=== PATIENT | male | born 1960 | race Two or more races ===

== ENCOUNTER 2021-01-23 01:26 | Emergency (ER) | payer BC, MEDICAID ==
[~2021-01-23] VITALS: Ht 180.3 cm; Wt 95.3 kg
[~2021-01-23 01:26] MED LIST: SULF400T11
[2021-01-23 01:27] VITALS: BP 121/69
[2021-01-23] MEDS ORDERED: cefTRIAXone SOD 1,000 MG VL IM ONE (02:30)
[2021-01-23] MEDS ORDERED: CLINDAMYCIN HCL 150 MG CAP PO ONE (03:15)
[2021-01-23] MEDS ORDERED: CLINDAMYCIN HCL 150 MG CAP ONE ×2 (03:46→03:47)
== END 2021-01-23 03:56 | disposition home or self-care (01) ==
LOC: ER 01:33
DX: L02.01 Cutaneous abscess of face (principal); Z79.899 Other long term (current) drug therapy; Z88.8 Allergy status to other drugs, medicaments and biological substances
CPT/HCPCS: 96372; 99283; C1887; J0696